=== PATIENT | male | born 2000 | race Caucasian/White ===

== ENCOUNTER 2021-04-15 14:06 | Emergency (ER) | payer OTHER ==
[~2021-04-15] VITALS: Ht 182.9 cm; Wt 90.4 kg
[2021-04-15] MEDS ORDERED: NS 1,000 ML IV ONE (18:45)
[2021-04-15] MEDS ORDERED: ACETAMINOPHEN 500 MG TAB PO ONE (18:50)
[2021-04-15 19:14] VITALS: O2SAT 99
--- NOTE | 2021-04-15 19:22 | REP ---
INDICATION: SOB, cough. COMPARISON: No comparison chest x-ray. TECHNIQUE: Portable upright AP chest radiograph. FINDINGS: The lungs are well inflated and free of infiltrate. Pleural angles are sharp. Heart size is normal. Pulmonary vasculature is not increased. IMPRESSION: No active disease. <Electronically signed by Inder Vuong > 04/15/21 [id number]
[2021-04-15 19:23] LABS: HEMATOCRIT 48.6 % (42.0-52.0); HEMOGLOBIN 16.7 g/dl (13.5-17.5); MEAN CORPUSCULAR HEMOGLOBIN 28.9 pg (27.0-33.0); MEAN CORPUSCULAR HGB CONC 34.4 g/dl (32.0-36.5); MEAN CORPUSCULAR VOLUME 84.1 fl (80.0-96.0); PLATELET COUNT, AUTOMATED 128 10^3/uL (150-450); RED BLOOD COUNT 5.78 10^6/uL (4.30-6.10); WHITE BLOOD COUNT 6.1 10^3/uL (4.0-10.0)
[2021-04-15 19:51] LABS: ALBUMIN 4.2 GM/DL (3.2-5.2); ALT/SGPT 40 U/L (12-78); BILIRUBIN,DIRECT 0.3 MG/DL (0.0-0.2); BILIRUBIN,TOTAL 1.2 MG/DL (0.2-1.0); BLOOD UREA NITROGEN 17 MG/DL (7-18); CALCIUM LEVEL 9.1 MG/DL (8.5-10.1); CARBON DIOXIDE LEVEL 28 MEQ/L (21-32); CHLORIDE LEVEL 107 MEQ/L (98-107); CK-MB VALUE MASS < 1.0 NG/ML (<3.6); CPK CREATINE PHOSPHOKINASE 332 U/L (39-308); CREATININE FOR GFR 0.93 MG/DL (0.70-1.30); GLUCOSE, FASTING 100 MG/DL (70-100); POTASSIUM SERUM 4.1 MEQ/L (3.5-5.1); SODIUM LEVEL 142 MEQ/L (136-145); TOTAL PROTEIN 7.2 GM/DL (6.4-8.2); TROPONIN I < 0.02 NG/ML (< 0.10)
[2021-04-15 19:54] LABS: ATYPICAL LYMPH 15 % (0-5); EOSINOPHILS 1 % (0-3); LYMPHOCYTES 30 % (16-44); MONOCYTES 4 % (0-5); NEUTROPHILS 34 % (28-66); PLATELET ESTIMATE DECREASED (NORMAL)
[2021-04-15] MEDS ORDERED: ISOVUE-370 76% 100ML VIAL As Ordered ONE (20:24)
[2021-04-15 20:38] LABS: MONO SCRN POSITIVE (NEGATIVE)
--- NOTE | 2021-04-15 21:47 | REPVR ---
PROCEDURE INFORMATION: Exam: CT Head Without Contrast Exam date and time: 04/15/2021 8:41 PM Age: 20 years old Clinical indication: Pain; Headache; Additional info: Worsening migraines x3 weeks TECHNIQUE: Imaging protocol: Computed tomography of the head without contrast. Radiation optimization: All CT scans at this facility use at least one of these dose optimization techniques: automated exposure control; mA and/or kV adjustment per patient size (includes targeted exams where dose is matched to clinical indication); or iterative reconstruction. COMPARISON: No relevant prior studies available. FINDINGS: Brain: Normal. No hemorrhage. Unremarkable white matter. No mass effect. Cerebral ventricles: No ventriculomegaly. Paranasal sinuses: Visualized sinuses are unremarkable. No fluid levels. Mastoid air cells: Visualized mastoid air cells are well aerated. Bones/joints: Unremarkable. No acute fracture. Soft tissues: Unremarkable. IMPRESSION: No acute intracranial abnormality. Electronically signed by: eRji Major On 04/15/2021 21:47:02 PM
--- NOTE | 2021-04-15 21:58 | REPVR ---
PROCEDURE INFORMATION: Exam: CTA Chest With Contrast Exam date and time: 04/15/2021 8:41 PM Age: 20 years old Clinical indication: Shortness of breath; Additional info: Pleuritic pain, SOB, elevated dimer, R/O pe TECHNIQUE: Imaging protocol: Computed tomographic angiography of the chest with contrast. 3D rendering (Not supervised by radiologist): MIP and/or 3D reconstructed images were created by the technologist. Radiation optimization: All CT scans at this facility use at least one of these dose optimization techniques: automated exposure control; mA and/or kV adjustment per patient size (includes targeted exams where dose is matched to clinical indication); or iterative reconstruction. Contrast material: ISOVUE 370; Contrast volume: 75 ml; Contrast route: INTRAVENOUS (IV); COMPARISON: CR PORTABLE CHEST X-RAY 04/15/2021 6:49 PM FINDINGS: Pulmonary arteries: Normal. No pulmonary emboli. Aorta: Unremarkable. No aortic aneurysm. No aortic dissection. Lungs: Unremarkable. No consolidation. No masses. Pleural spaces: Unremarkable. No pneumothorax. No pleural effusion. Heart: Unremarkable. No cardiomegaly. No pericardial effusion. Lymph nodes: Unremarkable. No enlarged lymph nodes. Bones/joints: Unremarkable. No acute fracture. Soft tissues: Unremarkable. IMPRESSION: No acute findings. Electronically signed by: Reji Major On 04/15/2021 21:57:59 PM
--- NOTE | 2021-04-15 22:00 | REPVR ---
PROCEDURE INFORMATION: Exam: US Abdomen Complete Exam date and time: 04/15/2021 9:27 PM Age: 20 years old Clinical indication: Fever and other: + mono, elevated bilirubin; Additional info: [place], elevated bilirubin, please view spleen as well TECHNIQUE: Imaging protocol: Real-time ultrasound of the abdomen with image documentation. COMPARISON: CT ANGIO CHEST 04/15/2021 8:42 PM FINDINGS: Liver: Liver measures 16.4 cm. No focal hepatic abnormality. Gallbladder: Partially contracted gallbladder. No definite cholelithiasis. No pathologic gallbladder wall thickening. Common bile duct: Common bile duct measures within normal limits. Pancreas: Pancreas is obscured by overlying bowel gas. Right kidney: Right kidney measures up to 10.5 cm and appears within normal limits. Left kidney: Left kidney measures up to 11.4 cm and appears within normal limits. Spleen: Splenomegaly measures 13.8 cm. No focal abnormality involving the spleen. IMPRESSION: No acute abnormality. Enlarged spleen measuring 13.8 cm. Electronically signed by: Reji Major On 04/15/2021 21:59:53 PM
[2021-04-15 22:55] VITALS: BP 130/71
[2021-04-15 23:14] LABS: APPEARANCE, URINE CLEAR (CLEAR); BACTERIA, URINE AUTO NEGATIVE (NEGATIVE); BILIRUBIN, URINE AUTO NEGATIVE (NEGATIVE); BLOOD, URINE BLOOD NEGATIVE (NEGATIVE); COLOR, URINE YELLOW (YELLOW); GLUCOSE, URINE (UA) AUTO NEGATIVE (NEGATIVE); KETONE, URINE AUTO NEGATIVE (NEGATIVE); LEUKOCYTE ESTERASE, URINE AUTO NEGATIVE (NEGATIVE); NITRITE, URINE AUTO NEGATIVE (NEGATIVE); PROTEIN, URINE AUTO NEGATIVE (NEGATIVE); RBC, URINE AUTO 2 /HPF (0-3); SQUAMOUS EPITHELIAL CELL UR AU 0 /HPF (0-6); WBC, URINE AUTO 1 /HPF (0-3)
[2021-04-15 23:15] LABS: SPECIFIC GRAVITY URINE AUTO >1.060 (1.002-1.035)
--- NOTE | 2021-04-17 06:47 | ECGEPIP ---
[facility] - ED Test Date: 2021-04-15 Pat Name: ONELIA ROSENBAUM Department: Room: - Gender: Male Manager Fine: mayasallydahiana : 2000 Requested By: LIZA Suarez PA-C Order Number: [id number] Reading MD: Arcenio Meredith Measurements Intervals [place] Rate: 76 P: 55 [place]: 154 QRS: 66 QRSD: 106 T: 40 QT: 366 QTc: 411 Interpretive Statements Normal sinus rhythm with sinus arrhythmia INCOMPLETE RIGHT BUNDLE BRANCH BLOCK Nonspecific T wave abnormality NO PRIORS FOR COMPARISON Electronically Signed on 04-17-2021 6:47:14 EDT by Arcenio Meredith
[2021-04-17 19:09] LABS: Lyme Disease IgG/IgM Antibodie <0.91 ISR (0.00-0.90); Lyme Disease IgM Ab Quantitati <0.80 index (0.00-0.79)
== END 2021-04-15 23:02 | disposition home or self-care (01) ==
LOC: M ED 14:06
DX: B27.90 Infectious mononucleosis, unspecified without complication (principal); G43.909 Migraine, unspecified, not intractable, without status migrainosus; R16.1 Splenomegaly, not elsewhere classified; B34.8 Other viral infections of unspecified site; I45.19 Other right bundle-branch block; F17.200 Nicotine dependence, unspecified, uncomplicated
CPT/HCPCS: 70450; 71045; 71275; 76700; 80048; 80076; 81001; 82550; 82553; 84484; 85025; 85379; 86308; 86617; 87798; 93005; 96360; 96361; 99284; Q9967